=== PATIENT | female | born 2005 | race Two or more races ===

== ENCOUNTER 2024-06-27 02:30 | Emergency (ER) | payer BC, SELFPAY ==
[2024-06-27 02:31] VITALS: BMI 24.1
[2024-06-27 02:36] VITALS: BP 128/87; PULSE 102; RESP 20; TEMP 36.8; O2SAT 95
--- NOTE | 2024-06-27 02:45 | PD.EDRME ---
Rapid Medical Screening Exam RME Arrival date/time: 06/27/24 02:30 19 yo f present to Ed for c/o vomiting worsen today. 4 days flu like sx. I have greeted and performed a focused initial assessment of this patient. A comprehensive ED assessment and evaluation of the patient, analysis of all test results, and completion of the medical decision making process will be conducted by additional ED providers. Chief Complaint: General Adult/Misc Complain Vital signs: Vital Signs Temperature 98.2 F 06/27/24 02:36 Pulse Rate 102 H 06/27/24 02:36 Respiratory Rate 20 06/27/24 02:36 Blood Pressure 128/87 H 06/27/24 02:36 Pulse Oximetry (%) 95 06/27/24 02:36 Oxygen Delivery Method Room Air 06/27/24 02:36
--- NOTE | 2024-06-27 02:46 | XR_ITS ---
Examination: PA lateral chest 2 views Technique: Upright PA lateral chest 2 views Exam date and time: June 27, 2024 0250 hrs. Comparison September 26, 2021 Indications: Coughing beginning 4 days ago. Findings: Significant pneumonia anteromedial segment right lower lobe Normal heart size Left lung clear Intact osseous structures Impression: Significant right base pneumonia
[2024-06-27] MEDS: ONDANSETRON ODT 4 MG TABRAP PO (02:56)
[2024-06-27 03:10] LABS: Basophils % (Auto) 0 % (0-2.5); Eosinophils % (Auto) 0 % (0-10); Hemoglobin 14.2 g/dL (12.0-16.0); Immature Granulocytes % (Auto) 0 % (0-0); Immature Granulocytes Auto 0.01 Thou/mm3 (0.00-0.00); Lymphocytes # (Auto) 0.8 Thou/mm3 (1.0-4.8); Lymphocytes % (Auto) 12 % (10-50); Mean Corpuscular HGB Conc 35.5 g/dl (31.0-37.0); Mean Corpuscular Hemoglobin 28.7 pg (25.0-35.0); Mean Corpuscular Volume 81 fL (80-100); Monocytes # (Auto) 0.4 Thou/mm3 (0.0-0.8); Monocytes % (Auto) 6 % (0-12); Neutrophils # (Auto) 5.4 Thou/mm3 (1.8-7.7); Neutrophils % (Auto) 82 % (37-80); Nucleated Red Blood Cell % 0 /100 WBC (0); Platelet Count 187 Thou/mm3 (140-440); RDW Standard Deviation 37.3 fL (36.4-46.3); Red Blood Count 4.94 Miln/mm3 (4.00-5.20); White Blood Count 6.5 Thou/mm3 (4.5-11.0)
[2024-06-27 03:23] LABS: Strep A Rapid Negative (Negative)
[2024-06-27 03:28] LABS: Alanine Aminotransferase 17 U/L (10-49); Albumin/Globulin Ratio 1.8 (1.2-2.2); Alkaline Phosphatase 68 U/L (46-116); Anion Gap 12 (7-16); Aspartate Amino Transferase 24 U/L (0-34); BUN/Creatinine Ratio 19 Ratio (12-20); Bilirubin,Total 0.5 mg/dL (0.3-1.2); Blood Urea Nitrogen 13 mg/dL (9-23); Calcium 9.5 mg/dL (8.3-10.6); Calcium (Corrected) 9.5 mg/dL (8.5-10.1); Carbon Dioxide 22.6 mMol/L (20.0-31.0); Chloride 100 mMol/L (98-107); Creatinine (Component) 0.7 mg/dL (0.6-1.3); Estimated Creatinine Clearance 115.4 mL/min (>60); Globulin 2.8 gm/dL (2.3-3.5); Glucose 102 mg/dL (74-106); Osmolality,Calculated 270 (275-295); Potassium 3.7 mMol/L (3.4-5.1); Sodium 135 mMol/L (136-145); Total Protein 7.8 gm/dL (5.7-8.2); eGFR > 60 See Note
[2024-06-27 03:37] LABS: HCG,Qualitative Serum Negative
[2024-06-27 03:40] LABS: Collection Type, Urine Voided; RBC,Urine 0 /hpf (0-3); WBC,Urine 0 /hpf (0-5)
[2024-06-27] MEDS: BENZONATATE 100 MG CAPSULE 200 MG PO (03:41)
[2024-06-27 04:06] LABS: Bilirubin,Urine Negative (Negative); Blood,Urine Negative (Negative); Clarity,Urine Clear (Clear/Hazy); Color,Urine Yellow (Lt Yel-Yel); Glucose, Urine Negative (Negative); Ketones,Urine 4+ (Negative); Leukocyte Esterase,Urine Negative (Negative); Nitrite,Urine Negative (Negative); Protein,Urine 2+ (Neg - Trace); Specific Gravity,Urine 1.036 (1.001-1.035); Squamous Epithelial Cell,Urine 3 /hpf (0-5)
--- NOTE | 2024-06-27 04:09 | PD.EDADULT ---
ED General RME/HPI General Chief complaint: General Adult/Misc Complain Stated complaint: COUGHING X 4 DAYS, N/V Time Seen by Provider: 06/27/24 04:09 Arrival date/time: 06/27/24 02:30 19 year old female present to emergency room with c/o of cough for 4 days. LOCATION: chest SEVERITY: Symptoms are described as being severe with limitations on activities of daily living CONTEXT: The patient is unable to identify any inciting events. DURATION/TIMING: The symptoms started approximately 4 days ASSOCIATED SYMPTOMS: The patient is unable to identify any other associated symptoms. MODIFYING FACTORS: The patient is unable to identify any alleviating or aggravating symptoms. PERTINENT ROS: no fevers, o pleuritic pain, no ripping or tearing sensations, denies any lower extremity edema and no unilateral swelling, no chest pain/shortness of breath no diarrhea, no dizziness/headache no rash no loc/syncope episode REVIEW OF SYSTEMS: See History of Present Illness - with the exception of those mentioned in the history of present illness, all other systems reviewed and reported as negative GENERAL: In general the patient is awake, interactive, in an emergency department gurney. HEAD/EYES/EARS/NOSE/THROAT: normo-cephalic, atraumatic, mucus membranes are moist, anicteric, palpebral conjunctiva is pink, trachea is midline. CARDIOVASCULAR: regular rate and regular rhythm, no murmurs, heart sounds are not distant, strong pulses in all four extremities that are equal and symmetric bilateral upper and lower extremities, normal capillary refill. CHEST/PULMONARY: normal chest rise and fall, good air movement, clear to auscultation bilaterally, normal inspiratory to expiratory ratios without evidence of respiratory distress. NECK: No midline/Paraspinal tenderness, no step off ROM/Strenght intact No Kernig and bruzinski sign. No trauma ABDOMEN: soft, not tender, no masses appreciated BACK: normal range of motion without pain. NEUROLOGICAL: cranio-facial features are symmetric, moves all four extremities equally without obvious limitations or weakness. EXTREMITY: no tenderness to palpation over the long bones or large joints of the bilateral upper and lower extremities, no joint swelling, no joint erythema, no signs of trauma, no unilateral leg swelling and no peripheral edema. SKIN: warm, dry, well-perfused, no jaundice, no rash, no telangiectasias or petechia. PSYCH: calm, cooperative, no evidence of psychosis or agitation RME / HPI RME / HPI narrative: 06/27/24 02:30 19 yo f present to Ed for c/o vomiting worsen today. 4 days flu like sx. I have greeted and performed a focused initial assessment of this patient. A comprehensive ED assessment and evaluation of the patient, analysis of all test results, and completion of the medical decision making process will be conducted by additional ED providers. Related Data Previous Rx's ?Medication ?Instructions ?Recorded azithromycin 250 mg tablet See Rx Instructions PO .COMPLEX #6 09/26/21 tabs ibuprofen 400 mg tablet 400 mg PO Q6H PRN fever or pain 09/26/21 #30 tabs ondansetron 4 mg disintegrating 4 mg PO Q8H PRN nausea and 06/01/23 tablet vomiting #30 tabs albuterol sulfate 90 mcg/actuation 1 inh inhalation QID PRN shortness 06/27/24 aerosol inhaler of breath or wheezing #8.5 grams promethazine-DM 6.25 mg-15 mg/5 mL 5 ml PO Q6H PRN cough #118 mL 06/27/24 oral syrup Allergies Allergy/AdvReac Type Severity Reaction Status Date / Time No Known Allergies Allergy Verified 05/31/23 22:19 Course Course Course Narrative: This patient presents with symptoms suspicious for likely viral upper respiratory infection. Differential includes bacterial pneumonia, sinusitis, allergic rhinitis, strep, flu/covid . Do not suspect underlying cardiopulmonary process. I considered, but think unlikely, dangerous causes of this patient?s symptoms to include ACS, CHF or COPD exacerbations, pneumonia, pneumothorax. Patient is nontoxic appearing and not in need of emergent medical intervention. xray: nad? urine no infection, hcg negative? Plan: reassurance, reassessment, over the counter medications, discharge with PCP followup Quality Measures none Orders Category Date Time Status Bedside COVID-19 Antigen Test NOW Care 06/27/24 02:44 Active Bedside Influenza A&B Antigen Test NOW Care 06/27/24 02:45 Active XR chest 2V Stat Exams 06/27/24 02:46 Taken CBC Stat Lab 06/27/24 03:04 Completed CMP [Comprehensive Metabolic Panel] Stat Lab 06/27/24 03:04 Completed HCG,Qualitative Serum Stat Lab 06/27/24 03:04 Completed Strep A Rapid Stat Lab 06/27/24 02:50 Completed UA [Urinalysis] Stat Lab 06/27/24 03:35 Completed Benzonatate [Tessalon] Med 06/27/24 02:46 Discontinued 200 mg PO X1 ONE Ondansetron Odt [Zofran Odt] Med 06/27/24 02:44 Discontinued 4 mg PO X1 ONE Vital Signs Vital signs: Vital Signs Temperature 98.2 F 06/27/24 02:36 Pulse Rate 102 H 06/27/24 02:36 Respiratory Rate 20 06/27/24 02:36 Blood Pressure 128/87 H 06/27/24 02:36 Pulse Oximetry (%) 95 06/27/24 02:36 Oxygen Delivery Method Room Air 06/27/24 02:36 [facility] Patient data External records reviewed:: None Clinical information provided by:: patient Social determinants that could affect healthcare access:: none Patient has the following chronic illnesses:: n/a How is presenting disease/condition affected by chronic disease/condition?: no chronic disease Evaluation data The following diagnostics were reviewed and interpreted by me:: lab results and radiology exam(s) Lab and/or radiology exams considered but not ordered:: n/a Interpretation Summary: basic labs wnl urine no infection hcg negative covid/flu/strep negative cxr: nad Medications Medications considered but not ordered:: none Medication administrations:: Medication Administration History Discontinued Medications Benzonatate (Benzonatate 100 Mg Capsule) 200 mg PO X1 ONE; Protocol Stop: 06/27/24 02:47 Last Admin: 06/27/24 03:41 Dose: 200 mg Documented By: AC Ondansetron HCl (Ondansetron Odt 4 Mg Tabrap) 4 mg PO X1 ONE; Protocol Stop: 06/27/24 02:45 Last Admin: 06/27/24 02:56 Dose: 4 mg Documented By: CVL as stated above Consultations Consultation(s) initiated? (list below): No Diagnosis Differential Diagnosis ED Complaint MDM: as stated in course Most likely diagnosis given after review of the tests above:: URI Admission Indicated Admission indicated?: not indicated Explain why admission is indicated or not indicated:: n/a Admission Request Was there a request for admission?: No Disposition Plan Disposition Plan: Discharge Discharge Attestation Discharge Attestation: The patient and all family members were given an opportunity to ask questions and understood the discharge instructions. Discharge instructions specifically effects, indications for sooner follow up or return to the emergency department, and the expected course of current diagnosis. Patient condition: Stable Medical Decision Making Differential Diagnosis Differential Diagnosis: as stated in course Lab Data 06/27/24 03:04 06/27/24 03:04 Labs: Lab Results 06/27/24 06/27/24 06/27/24 Range/Units 02:50 03:04 03:35 WBC 6.5 (4.5-11.0) Thou/mm3 RBC 4.94 (4.00-5.20) Miln/mm3 Hgb 14.2 (12.0-16.0) g/dL Hct 40.0 (36.0-46.0) % MCV 81 (80-100) fL MCH 28.7 (25.0-35.0) pg MCHC 35.5 (31.0-37.0) g/dl RDW Std Deviation 37.3 (36.4-46.3) fL Plt Count 187 (140-440) Thou/mm3 Neut % (Auto) 82 H (37-80) % Lymph % (Auto) 12 (10-50) % [place] % (Auto) 6 (0-12) % Eos % (Auto) 0 (0-10) % Baso % (Auto) 0 (0-2.5) % Neut # (Auto) 5.4 (1.8-7.7) Thou/mm3 Lymph # (Auto) 0.8 L (1.0-4.8) Thou/mm3 [place] # (Auto) 0.4 (0.0-0.8) Thou/mm3 Eos # (Auto) 0.0 (0.0-0.5) Thou/mm3 Baso # (Auto) 0.0 (0.0-0.2) Thou/mm3 Immature Gran # (Auto) 0.01 H (0.00-0.00) Thou/mm3 Absolute Nucleated RBC 0.00 (0.00-0.00) Thou/mm3 Immature Gran % 0 (0-0) % Nucleated RBC % 0 (0) /100 WBC Sodium 135 L (136-145) mMol/L Potassium 3.7 (3.4-5.1) mMol/L Chloride 100 (98-107) mMol/L Carbon Dioxide 22.6 (20.0-31.0) mMol/L Anion Gap 12 (7-16) BUN 13 (9-23) mg/dL Creatinine 0.7 (0.6-1.3) mg/dL Estim Creat Clear Calc 115.4 (>60) mL/min eGFR > 60 (60 - ) See Note BUN/Creatinine Ratio 19 (12-20) Ratio Glucose 102 (74-106) mg/dL Calculated Osmolality 270 L (275-295) Calcium 9.5 (8.3-10.6) mg/dL Corrected Calcium 9.5 (8.5-10.1) mg/dL Total Bilirubin 0.5 (0.3-1.2) mg/dL AST 24 (0-34) U/L ALT 17 (10-49) U/L Alkaline Phosphatase 68 (46-116) U/L Total Protein 7.8 (5.7-8.2) gm/dL Albumin 5.0 (3.5-5.0) gm/dL Globulin 2.8 (2.3-3.5) gm/dL Albumin/Globulin Ratio 1.8 (1.2-2.2) HCG, Qual Negative Ur Collection Type Voided Urine Color Yellow (Lt Yel-Yel) Urine Clarity Clear (Clear/Hazy) Urine pH 6.0 (5.0-7.0) Ur Specific [place] 1.036 H (1.001-1.035) Urine Protein 2+ A (Neg - Trace) Urine Glucose (UA) Negative (Negative) Urine Ketones 4+ A (Negative) Urine Blood Negative (Negative) Urine Nitrite Negative (Negative) Urine Bilirubin Negative (Negative) Urine Urobilinogen (Auto) 3.0 (0.0-1.0) mg/dL Ur Leukocyte Esterase Negative (Negative) Urine RBC 0 (0-3) /hpf Urine WBC 0 (0-5) /hpf Ur Squamous Epith Cells 3 (0-5) /hpf Urine Bacteria None (None) Group A Strep Rapid Negative (Negative) Discharge Plan Plan Patient Disposition: HOME (Self Care) Health Concerns: Follow with PMD as directed Take tylenol or motrin as need Return to ED if sx worsen Prescriptions/Referrals Prescriptions/Med Rec: New promethazine-DM 6.25-15 mg/5 mL syrup 5 ml PO Q6H PRN (Reason: cough) Qty: 118 0RF albuterol sulfate 90 mcg/actuation HFA aerosol inhaler 1 inh inhalation QID PRN (Reason: shortness of breath or wheezing) Qty: 8.5 0RF No Action ibuprofen 400 mg tablet 400 mg PO Q6H PRN (Reason: fever or pain) Qty: 30 0RF azithromycin 250 mg tablet See Rx Instructions .ROUTE .COMPLEX Qty: 6 0RF Rx Instructions: For 250 mg dose pack: take 500 mg today (day 1), then 250 mg for 4 days (days 2-5) ondansetron 4 mg tablet,disintegrating 4 mg PO Q8H PRN (Reason: nausea and vomiting) Qty: 30 0RF Referrals: Kian Guadalupe MD [Primary Care Provider] - In 1 week Problem List Clinical Impression: URI (upper respiratory infection) Patient/Caregiver Discharge Instructions Education Materials: ED URI, Viral, No Abx (Adult) Print Language: Swedish Stand Alone Forms: [facility] Award Info., Patient Portal Info Letter
[2024-06-27 04:20] VITALS: BP 114/77; PULSE 92; RESP 18; TEMP 37.3; O2SAT 98
== END 2024-06-27 04:20 | disposition home or self-care (01) ==
PROVIDERS: Physician Assistant; Emergency Provider Emergency Medicine; PCP Family Medicine
DX: J06.9 Acute upper respiratory infection, unspecified (principal)
CPT/HCPCS: 36415; 71046; 80053; 81001; 84703; 85025; 87651; 99283; Q0162; A9270